=== PATIENT | female | born 1965 | race Caucasian/White ===

== ENCOUNTER 2019-02-13 16:28 | Observation (INO) | payer BC ==
[2019-02-13] MEDS ORDERED: ASPIRIN 81 MG CHEWABLE TABLET PO ONE (17:00)
[2019-02-13 17:32] VITALS: BMI 29.6
[2019-02-13 17:41] LABS: Albumin 3.4 g/dL (3.4-5.0); Bilirubin Total 0.2 mg/dL (0.2-1.0); Potassium 4.1 mmol/L (3.5-5.1); Protein, Total 6.9 g/dL (6.4-8.2)
--- NOTE | 2019-02-13 18:51 | RAD REPORT ---
EXAM DESCRIPTION: CT - Head Brain Wo Cont - 02/13/2019 6:13 pm CLINICAL HISTORY: Numbness/TIA COMPARISON: None TECHNIQUE: Computed axial tomography of the head was obtained. IV contrast was not requested. All CT scans are performed using dose optimization technique as appropriate and may include automated exposure control or mA/KV adjustment according to patient size. FINDINGS: An intracranial bleed is not seen . The ventricles are normal in caliber. No extra-axial fluid collection is noted. Fluid within the sinuses/ mastoids is not seen. IMPRESSION: No acute intracranial abnormality is seen. If patient's symptoms persist MRI of the bra in would be recommended.
--- NOTE | 2019-02-13 19:13 | EKG ---
Test Date: 2019-02-13 Test Time: 17:25:58 Operations Support Representative: VIDAL MEASUREMENT RESULTS: Intervals: Rate: 56 HI: 170 QRSD: 84 QT: 430 QTc: 414 Bumpass: P: 51 HI: 170 QRS: 41 T: 30 INTERPRETIVE STATEMENTS: Sinus bradycardia Otherwise normal ECG No previous ECG available for comparison Electronically Signed On 02-13-19 19:12:47 SENIOR ANALYST DEVELOPER by Rehan Hidalgo
--- NOTE | 2019-02-13 19:27 | RAD REPORT ---
EXAM DESCRIPTION: USCarotid Artery Ghaufrwkm73/6/2019 7:01 pm CLINICAL HISTORY: tia COMPARISON: None FINDINGS: The velocity of the right internal carotid artery equals 72 cm/sec. The right ICA/CCA rati o .9 The velocity of the left internal carotid artery equals 153 cm/sec. The left ICA/CCA ratio 1.9. Left internal carotid artery is tortuous Mild plaque is present within the carotid arteries. The vertebral arteries demonstrate antegrade flow IMPRESSION: Mild plaque within the carotid arteries without evidence of a hemodynamically significan t stenosis NASCET criteria used. Mild 0-49% stenosis Moderate 50-69% stenosis Severe 70-99% stenosis
[2019-02-13 20:13] LABS: Urine Appearance CLOUDY; Urine Bilirubin NEGATIVE (NEG); Urine Blood 3+ (NEG); Urine Color YELLOW; Urine Glucose NEGATIVE (NEG); Urine Protein NEGATIVE (NEG); Urine Urobilinogen 0.2 mg/dL (0.2-1.0); Urine pH 5.5 (5.0-7.0)
[2019-02-13 20:16] LABS: Urine Microscopic Reflex ORDER UMIC
[2019-02-13 20:23] LABS: Urine Amorphous Sediment 2+ /HPF (NONE SEEN); Urine Bacteria <20 /HPF (<20); Urine Culture Reflex Order NOT NEEDED; Urine Mucus 2+ /HPF (NONE SEEN)
[2019-02-13] MEDS ORDERED: INFLUENZA VACCINE (for 3y+) 0.5 ML DOSE IMVAC ONE (21:00)
[2019-02-14 00:46] VITALS: O2SAT 100
[2019-02-14] MEDS ORDERED: ASPIRIN 81 MG CHEWABLE TABLET PO SCH (09:00)
[2019-02-14] MEDS ORDERED: ATORVASTATIN 40 MG TAB PO SCH ×2 (09:00→21:00)
[2019-02-14 13:58] VITALS: BP 114/57; TEMP 97
--- NOTE | 2019-02-14 17:57 | ECHO ---
HEIGHT: 5 ft 1 in WEIGHT: 157 lb 0 oz DATE OF STUDY: 02/14/[address]: Onur Delgado MD 2-DIMENSIONAL: YES M.MODE: YES DOPPLER: YES COLOR FLOW: YES TDS: PORTABLE: DEFINITY: BUBBLE STUDY: DIAGNOSIS: TIA CARDIAC HISTORY: CATHERIZATION: NO SURGERY: NO PROSTHETIC VALVE: NO PACEMAKER: NO MEASUREMENTS (cm) DIASTOLIC (NORMALS) SYSTOLIC (NORMALS) IVSd 0.8 (0.6-1.2) LA Diam 3.6 (1.9-4.0) LVEF 50% LVIDd 4.3 (3.5-5.7) LVIDs 3.3 (2.0-3.5) %FS 25% LVPWd 0.9 (0.6-1.2) Ao Diam 2.7 (2.0-3.7) 2 DIMENSIONAL ASSESSMENT: RIGHT ATRIUM: NORMAL LEFT ATRIUM: NORMAL RIGHT VENTRICLE: NORMAL LEFT VENTRICLE: NORMAL TRICUSPID VALVE: NORMAL MITRAL VALVE: NORMAL PULMONIC VALVE: NORMAL AORTIC VALVE: NORMAL PERICARDIAL EFFUSION: NONE AORTIC ROOT: NORMAL LEFT VENTRICULAR WALL MOTION: NORMAL DOPPLER/COLOR FLOW: NORMAL COMMENTS: NORMAL LEFT VENTRICULAR SIZE AND FUNCTION. NO VEGETATION OR THROMBUS. NO MITRAL VALVE PROLAPSE. NO WALL MOTION ABNORMALITY. TECHNOLOGIST: STEPHANIE ECHOLS
--- NOTE | 2019-02-14 22:39 | CON ---
Reason For Consultation: Consultation called because of transient ischemic attack. History Of Present Illness: Ms. Shah is a 53-year-old patient with no significant past medical his tory and risk factors for stroke, except smoking and possibly dyslipidemia, had less than 2-hour epis ode of left face and arm numbness and weakness. She was brought to [facility] where head CT scan was unremarkable. She was admitted for further workup. She had carotid Doppler studies that w ere unremarkable. Blood work showed a normal sedimentation rate of 10. Electrolyte panel was unrema rkable except for slightly low AST of 13 and chloride slightly elevated 109. Urinalysis showed 3+ bl ood, 10-20 red blood cells, 5-10 squamous epithelial cells, 2+ amorphous sedimentation. The patient did receive some aspirin 81 mg daily, which she was not taking on a regular basis. Past Medical History: As indicated. Allergies: NONE. Home Medications: No regular medicines. Family History: Noncontributory. Social History: Smoke tobacco cigarettes. Review of Systems: No recent fevers, chills, nausea, vomiting, myalgias, or arthralgias. Physical Examination: Vital Signs: Blood pressure 114/57, pulse 60, respiratory rate 16, temperature 97.4, oxygen saturati on 99% on room air. General: Ms. Shah is resting in bed. She is in no acute distress. HEENT: She is normocephalic, atraumatic. Sclerae anicteric. Oropharynx pink and moist. Neck: Supple. Chest: Clear. Heart: Regular. Extremities: Show no edema, cyanosis, or clubbing. Neurological: She is alert and oriented to situation, place, and person. Follows all commands appro priately. She has no cranial nerve deficits. No focal motor deficits in upper lower extremities. S ensory examination intact in upper and lower extremities. Coordination intact in upper and lower ext remities. Reflexes 2+ in the upper and lower extremities and symmetric. Gait with stance right arm swing. Assessment: Ms. Shah is a 53-year-old patient with possible transient ischemic attack involving a potential right subcortical region and some left-sided transient weakness. She was not on aspirin re gimen and does smoke. Plan: 1.Stop smoking cigarettes. 2.Aspirin 81 mg daily. 3.After discharge, follow up in Dr. Nielsen's clinic in 1 month. 4.Atorvastatin 40 mg at bedtime and maintain a blood pressure diary and then follow up with Dr. Britton [facility]eman[facility] clinic in 1 month. JUSTIN/REGINA Voice ID: [id number] Report ID: [id number]
--- NOTE | 2019-02-15 00:15 | HP ---
Date of Admission: 02/13/2019 Chief Complaint: Tingling, numbness of the face and tongue and sudden loss of control of left arm. History Of Present Illness: A 53-year-old female who was brought to the office with acute episode of loss of control of the left arm, tingling and numbness of the face and feet. The patient was evalua donna. She did not have any neurological deficit. However, because of acute symptoms, the patient is admitted for observation. Past Medical History: The patient is known to have hyperlipidemia, however she stopped taking Lipito r. She smokes. No history of hypertension, diabetes. Family History: Noncontributory. Personal History: She is on no medications currently. Allergies: NONE. Review of Systems: No history of fever, chills, rigors. Physical Examination: General: Revealed a 53-year-old female, fully alert and oriented. VITAL SIGNS: Normal vital signs. HEENT: Negative. Neck: Supple, JVD negative. Chest: Clear. Heart: Regular. Abdomen: Soft. Extremities: No edema. Neurological: No deficits. Laboratory Data: CAT scan of the head, carotid study are not indicative of any significant pathology . Her CBC, Chem profile also is normal. Assessment: 1.Transient ischemic attack. 2.Hyperlipidemia. Plan: The patient is started on aspirin and Lipitor. Neurological consult pending. I spoke to the patient regarding continuing her Lipitor as well as aspirin and quit smoking in view of her neurologi crissy symptoms. LAUREN/REGINA Voice ID: [id number]
== END 2019-02-14 15:21 | disposition home health service (06) ==
LOC: 2ND 16:44
PROVIDERS: ADMIT Internal Medicine; ATTEND Internal Medicine
DX: E78.5 Hyperlipidemia, unspecified (principal); G45.9 Transient cerebral ischemic attack, unspecified; Z23 Encounter for immunization
CPT/HCPCS: 93005; 93306; 87088; 87086; 36415; 85652; 80053; 70450; 90471; 93880; Q2035; G0379; G0378 ×3; 81003; 81015

== ENCOUNTER 2019-08-01 23:29 | Emergency (ER) | payer BC ==
--- NOTE | 2019-08-02 00:06 | ER ---
Nurse's Notes [facility] Name: Jocelyn Shah Age: 53 yrs Sex: Female : 1965 Arrival Date: 08/01/2019 Time: 23:33 Bed 5 Private MD: Diagnosis: Sebaceous cyst Presentation: 07/31 23:43 Chief complaint: Patient states: i have boil in my upper back for 2 weeks which causes mg2 pain in my neck. denies fever. Coronavirus screen: Proceed with normal triage. Patient denies a cough. Patient denies shortness of breath or difficulty breathing. Patient denies measured and/or subjective temperature greater than 100.4F prior to today's visit. Patient denies travel on a cruise ship or to a country the [facility] currently lists as an affected area. Patient denies contact with known and/or suspected case of COVID-19. Ebola Screen: No symptoms or risks identified at this time. Initial Sepsis Screen: Does the patient meet any 2 criteria? No. Patient's initial sepsis screen is negative. Does the patient have a suspected source of infection? No. Patient's initial sepsis screen is negative. Risk Assessment: Do you want to hurt yourself or someone else? Patient reports no desire to harm self or others. Onset of symptoms was July 2019. 23:43 Method Of Arrival: Ambulatory mg2 23:43 Acuity: LEXIE 4 mg2 Triage Assessment: 23:46 General: Appears in no apparent distress. comfortable, Behavior is calm, cooperative. mg2 Pain: Complains of pain in back Pain radiates to nape. EENT: No signs and/or symptoms were reported regarding the EENT system. Neuro: Level of Consciousness is awake, alert, obeys commands, Oriented to person, place, time, situation. Derm: Abscess located on back is quarter sized, has no drainage, is raised. VENEER SPLICER: 23:53 LMP 04/2019 mg2 Historical: - Allergies: 23:45 No Known Allergies; mg2 - PMHx: 23:45 mild stroke; Hyperlipidemia; mg2 - PSHx: 23:45 boil; mg2 - Immunization history:: Flu vaccine is up to date. - Social history:: Smoking status: Patient reports the use of cigarette tobacco products, smokes one pack cigarettes per day. Patient uses alcohol, every other day. Patient/guardian denies using street drugs, IV drugs. Screenin:52 Abuse screen: Denies threats or abuse. Denies injuries from another. Nutritional mg2 screening: No deficits noted. Tuberculosis screening: No symptoms or risk factors identified. Fall Risk None identified. Assessment: 23:52 Reassessment: see triage assessment. mg2 Vital Signs: 23:43 BP 136 / 80; Pulse 75; Resp 18; Temp 98.5; Pulse Ox 100% on R/A; Weight 68.04 kg; mg2 Height 5 ft. 1 in. (154.94 cm); Pain 5/10; 23:43 Body Mass Index 28.34 (68.04 kg, 154.94 cm) mg2 ED Course: 23:33 Patient arrived in ED. fj1 23:36 Minh Jacobsen, RN is Primary Nurse. rr5 23:44 Lennox Benitez MD is Attending Physician. tw4 23:44 Triage completed. mg2 23:45 Arm band placed on. mg2 23:52 Patient has correct armband on for positive identification. Placed in gown. Door mg2 closed. Warm blanket given. 23:53 Patient did not have IV access during this emergency room visit. mg2 08/01 00:09 No provider procedures requiring assistance completed. mg2 Administered Medications: No medications were administered Outcome: 00:05 Discharge ordered by . tw4 00:09 Discharged to home ambulatory. mg2 00:09 Condition: stable 00:09 Discharge instructions given to patient. 00:09 Patient left the ED. mg2 Signatures: Lennox Benitez MD MD tw4 Paulie Hough RN RN [facility] Minh Jacobsen, MELISSA RN rr5 Ulises Paredes fj
--- NOTE | 2019-08-02 00:06 | EDPHYS ---
Physician Documentation [facility] Name: Jocelyn Shah Age: 53 yrs Sex: Female : 1965 Arrival Date: 08/01/2019 Time: 23:33 Bed 5 Private MD: ED Physician Lennox Benitez HPI: 07/31 23:59 This 53 yrs old Female presents to ER via Ambulatory with complaints of BOIL tw4 LOCATED ON THE BACK THAT IS CAUSING PROBLEMS/DISCOMFORT. 08/01 00:06 the patient presents with a swollen area of the thoracic area. Description: The tw4 affected area is moderate sized, well demarcated, draining, erythematous. Onset: The symptoms/episode began/occurred 3 week(s) ago. 02:07 Associated signs and symptoms: The patient has no apparent associated signs or tw4 symptoms. Severity of symptoms: At their worst the symptoms were mild, in the emergency department the symptoms are unchanged. The patient has experienced a previous episode. VP BUSINESS DEVELOPMENT: 07/31 23:53 LMP 04/2019 mg2 Historical: - Allergies: 23:45 No Known Allergies; mg2 - PMHx: 23:45 mild stroke; Hyperlipidemia; mg2 - PSHx: 23:45 boil; mg2 - Immunization history:: Flu vaccine is up to date. - Social history:: Smoking status: Patient reports the use of cigarette tobacco products, smokes one pack cigarettes per day. Patient uses alcohol, every other day. Patient/guardian denies using street drugs, IV drugs. ROS: 08/01 02:07 Constitutional: Negative for fever, chills, and weight loss, Eyes: Negative for injury, tw4 pain, redness, and discharge, Cardiovascular: Negative for chest pain, palpitations, and edema, Respiratory: Negative for shortness of breath, cough, wheezing, and pleuritic chest pain, Abdomen/GI: Negative for abdominal pain, nausea, vomiting, diarrhea, and constipation, MS/Extremity: Negative for injury and deformity, Neuro: Negative for headache, weakness, numbness, tingling, and seizure. Skin: Positive for abscess, burn, of the thoracic area. Exam: 02:08 Constitutional: This is a well developed, well nourished patient who is awake, alert, tw4 and in no acute distress. Head/Face: Normocephalic, atraumatic. Chest/axilla: Normal chest wall appearance and motion. Nontender with no deformity. No lesions are appreciated. Cardiovascular: Regular rate and rhythm with a normal S1 and S2. No gallops, murmurs, or rubs. Normal PMI, no JVD. No pulse deficits. Respiratory: Lungs have equal breath sounds bilaterally, clear to auscultation and percussion. No rales, rhonchi or wheezes noted. No increased work of breathing, no retractions or nasal flaring. Abdomen/GI: Soft, non-tender, with normal bowel sounds. No distension or tympany. No guarding or rebound. No evidence of tenderness throughout. Back: No spinal tenderness. No costovertebral tenderness. Full range of motion. MS/ Extremity: Pulses equal, no cyanosis. Neurovascular intact. Full, normal range of motion. Neuro: Awake and alert, GCS 15, oriented to person, place, time, and situation. Cranial nerves II-XII grossly intact. Motor strength 5/5 in all extremities. Sensory grossly intact. Cerebellar exam normal. Normal gait. Vital Signs: 07/31 23:43 BP 136 / 80; Pulse 75; Resp 18; Temp 98.5; Pulse Ox 100% on R/A; Weight 68.04 kg; mg2 Height 5 ft. 1 in. (154.94 cm); Pain 5/10; 23:43 Body Mass Index 28.34 (68.04 kg, 154.94 cm) mg2 MDM: 23:44 Patient medically screened. tw4 08/01 00:04 Counseling: I had a detailed discussion with the patient and/or guardian regarding: the tw4 historical points, exam findings, and any diagnostic results supporting the discharge/admit diagnosis. Medical screen evaluation completed. EMTALA emergency medical condition absent. Special discussion: I discussed with the patient/guardian in detail that at this point there is no indication for admission to the hospital. It is understood, however, that if the symptoms persist or worsen the patient needs to return immediately for re-evaluation. 02:08 Differential diagnosis: abscess, cellulitis. Data reviewed: vital signs, nurses notes. tw4 Data interpreted: Pulse oximetry: Interpretation: normal. Administered Medications: No medications were administered Disposition: 08/02/19 00:05 Discharged to Home. Impression: Sebaceous cyst. - Condition is Stable. - Medication Reconciliation Form, Thank You Letter, Antibiotic Education, Prescription Opioid Use form. - Follow up: Private Physician; When: Upon discharge from the Emergency Department; Reason: Recheck today's complaints, Continuance of care, Re-evaluation by your physician. - Problem is an ongoing problem. - Symptoms are unchanged. Signatures: Lennox Benitez MD MD tw4 Paulie Hough, RN RN mg2 Corrections: (The following items were deleted from the chart) 00:09 00:05 08/02/2019 00:05 Discharged to Home. Impression: Sebaceous cyst. Condition is mg2 Stable. Forms are Medication Reconciliation Form, Thank You Letter, Antibiotic Education, Prescription Opioid Use. Follow up: Private Physician; When: Upon discharge from the Emergency Department; Reason: Recheck today's complaints, Continuance of care, Re-evaluation by your physician. Problem is an ongoing problem. Symptoms are unchanged. tw4
[2019-08-02 00:22] VITALS: BP 136/80; TEMP 98.5; O2SAT 100
== END 2019-08-02 00:09 | disposition home or self-care (01) ==
LOC: ER 23:29
DX: L72.3 Sebaceous cyst (principal); F17.210 Nicotine dependence, cigarettes, uncomplicated; Z86.73 Personal history of transient ischemic attack (TIA), and cerebral infarction without residual deficits
CPT/HCPCS: 99281